=== PATIENT | female | born 1985 | race Caucasian/White ===

== ENCOUNTER 2017-01-21 21:07 | Emergency (ER) | payer OTHER ==
[~2017-01-21] VITALS: Ht 165.1 cm; Wt 72.1 kg
[~2017-01-21 21:07] MED LIST: ALBUTEROL0.09 MG/A1 INH; PREDNISONE 20MG20 MG PO
--- NOTE | 2017-01-21 21:45 | ED DYSPNEA/ASTHMA COMPLAINT ---
History of Present Illness General Chief Complaint: Dyspnea (COPD, CHF, Other) Stated Complaint: SOB Source: patient, old records Exam Limitations: no limitations Vital Signs & Intake/Output Vital Signs & Intake/Output Vital Signs Date Time Temp Pulse Resp B/P B/P Pulse O2 O2 Flow FiO2 Mean Ox Delivery Rate 01/210 98 01/21 2119 97.7 90 18 108/68 96 Room Air Allergies Coded Allergies: latex (Severe, ANAPHYLAXIS 01/21/17) nut - unspecified (Severe, ANAPHYLAXIS FROM "TREE NUTS" 01/21/17) Penicillins (Intermediate, RASH 01/21/17) amoxicillin (Mild, RASH A CHILD 01/21/17) Reconcile Medications Albuterol Sulfate (Albuterol Sulfate Hfa) 0.09 MG/Actuation PAOLA 2 PUFF INH Q4- 6 PRN PRN SHORTNESS OF BREATH 90 MCG PER PUFF Prednisone 20 MG TAB 2 TAB PO DAILY BRONCHITIS Triage Note: PT IS 23 WEEKS, . WAS CLEARED BY CBC PRIOR TO COMING TO ED. PT TO ED C/O COUGH FOR A MONTH. GOT AN ALBUTEROL INH AND SYMBICORT FROM PCP, HAS BEEN USING FOR A MONTH. COUGH CONTINUES. PMH OF ASTHMA. O2 SAT 96% ON RA IN TRIAGE. Triage Nurses Notes Reviewed? yes Onset: one month Duration: week(s):, constant, continues in ED Timing: recent history Severity: moderate Activities at Onset: none Prior Episodes/Possible Cause: illness exposure Modifying Factors: Improves With: other (MDI). Associated Symptoms: cough, wheezing LMP (ages 10-50): 23 weeks aog : Yes Patient currently breastfeeds: No HPI: 1 month prior to admission patient complains of nasal congestion productive cough continued wheezing. She was prescribed Symbicort and albuterol. She reports little relief with continued symptoms. She denies fever chills nausea vomiting diarrhea abdominal pain chest pain dysuria rash bleeding. She's 23 weeks age gestation. Past History Travel History Traveled to [place] past 21 day No Medical History Any Pertinent Medical History? see below for history Neurological: NONE EENT: NONE Cardiovascular: NONE Respiratory: asthma ( A CHILD) Gastrointestinal: NONE Hepatic: NONE Renal: NONE Musculoskeletal: NONE Psychiatric: NONE Endocrine: NONE Tetanus Vaccine: Surgical History Surgical History: N Psychosocial History What is your primary language Czech Tobacco Use: Never used ETOH Use: denies use Illicit Drug Use: denies illicit drug use Family History Hx Contributory? No Review of Systems Review of Systems Constitutional: Reports: no symptoms. EENTM: Reports: see HPI, nasal congestion. Respiratory: Reports: see HPI, cough, short of breath, sputum production, wheezing. Cardiovascular: Reports: no symptoms. GI: Reports: no symptoms. Genitourinary: Reports: no symptoms. Musculoskeletal: Reports: no symptoms. Skin: Reports: no symptoms. Neurological/Psychological: Reports: no symptoms. Hematologic/Endocrine: Reports: no symptoms. Immunologic/Allergic: Reports: no symptoms. All Other Systems: Reviewed and Negative Physical Exam Physical Exam General Appearance: well developed/nourished, alert, awake, anxious, mild distress Head: atraumatic, normal appearance Eyes: Bilateral: normal appearance, PERRL, EOMI. Ears, Nose, Throat: normal pharynx, nasal congestion, moist mucus membranes Neck: normal inspection, supple, full range of motion, lymphadenopathy (R), lymphadenopathy (L), no midline tenderness Respiratory: chest non-tender, no respiratory distress, decreased breath sounds Cardiovascular: regular rate/rhythm, normal peripheral pulses, norml femoral pulses equa Peripheral Pulses: 4+ carotid (R), 4+ carotid (L) Gastrointestinal: normal bowel sounds, soft, non-tender, no organomegaly Extremities: normal inspection, normal capillary refill, normal range of motion, no edema Neurologic/Psych: no motor/sensory deficits, awake, alert, oriented x 3, normal gait, normal mood/affect, authors motivational II-XII nml as tested Skin: intact, normal color, warm/dry Lymphatic: adenopathy Core Measures ACS in differential dx? No Severe Sepsis Present: No Septic Shock Present: No Progress Differential Diagnosis: asthma, bronchitis, pneumonia Plan of Care: Current Medications Sig/Sheryl Start time Last Medication Dose Stop Time Status Admin Albuterol Sulfate 3 ML ONCE ONE 01/21 2145 UNVr (Proventil) 01/21 2146 Azithromycin 500 MG ONCE ONE 01/21 2145 UNVr (Zithromax) 01/21 2146 Ipratropium [place] 2.5 ML ONCE ONE 01/21 2145 UNVr (Atrovent) 01/21 2146 Initial ED EKG: none Departure Departure Time of Disposition: 2229 Disposition: HOME OR SELF CARE Condition: Stable Clinical Impression Primary Impression: Sinusitis, acute Qualifiers: Sinusitis location: unspecified location Recurrence: not specified as recurrent Qualified Code: J01.90 - Acute sinusitis, unspecified Secondary Impressions: Asthma with acute exacerbation Qualifiers: Asthma severity: moderate persistent Qualified Code: J45.41 - Moderate persistent asthma with (acute) exacerbation Referrals: SANAM WORKMAN,ZORAN Harris (PCP/Family) Departure Forms: Customer Survey General Discharge Information Prescriptions: Current Visit Scripts Azithromycin (Zithromax) 1 DP PO DAILY #4 TAB Prednisone 1 TAB PO SEE ADMIN CRITERIA #15 TAB If you decide to use prednisone take 3 the first day then 2 tabs 2 times a day for 5 days Critical Care Note Critical Care Note Critical Care Time: non-applicable
[2017-01-21] MEDS ORDERED: PREDNISONE20 M1 PO (22:33)
[2017-01-21] MEDS ORDERED: ZITHROMAX250 M2 PO (22:33)
[2017-01-21 22:51] VITALS: BP 115/56
== END 2017-01-21 22:54 ==
LOC: ERH 21:07
DX: J01.90 Acute sinusitis, unspecified (principal); J45.901 Unspecified asthma with (acute) exacerbation
CPT/HCPCS: 1263